=== PATIENT | female | born 1955 | race Caucasian/White ===

== ENCOUNTER → 2017-02-11 | Outpatient (CLI) | payer OTHER ==
--- NOTE | 2017-02-11 19:17 | PCVCIMAG ---
APPROVED REPORT Study performed: 02/11/2017 08:13:30 EXAM: Limited 2D Echocardiogram Patient Location: Echo lab Status: routine BSA: 1.84 HR: 61 bpmBP: 136/70 mmHg Rhythm: NSR Other Information Study Quality: Good Risk Factors: Cardiac Risk Factors: Hyperlipidemia Indications Cardiomyopathy Hypertension/HDD 2D Dimensions LVEF(%): 35.00 (>50%) IVSd: 10.97 (7-11mm) LVDd: 59.31 mm PWd: 10.21 (7-11mm) LVDs: 46.47 (25-40mm) LV Single Plane 4CH: 41.77 % LV Single Plane 2CH: 35.00 %Carr's LVEF: 38.38 % Biplane EF: 50.9 % Left Ventricle Left ventricle is borderline dilated. There is normal LV segmental wall motion. Borderline concentric left ventricular hypertrophy. Left ventricular systolic function is mildly decreased. LVEF is 35%-40% Diastolic function was not evaluated. Right Ventricle The right ventricle is normal size. The right ventricular systolic function is normal. Atria The left atrium size is normal. The right atrium size is normal. Aortic Valve The aortic valve is normal in structure. There is no aortic valvular stenosis. Mitral Valve The mitral valve is normal in structure. No evidence of mitral valve stenosis. Tricuspid Valve The tricuspid valve is normal in structure. Great Vessels The aortic root is normal in size. Pericardium There is no pericardial effusion. <Conclusion> Left ventricle is borderline dilated. Borderline concentric left ventricular hypertrophy. Left ventricular systolic function is mildly decreased. LVEF is 35%-40% The left atrium size is normal. The aortic valve is normal in structure. The mitral valve is normal in structure. The aortic root is normal in size. There is no pericardial effusion. The left atrium size is normal. The aortic valve is normal in structure. The mitral valve is normal in structure. There is no pericardial effusion.
== END | disposition home or self-care (01) ==
LOC: PCVCIMAG 07:43
PROVIDERS: ATTEND Internal Medicine Cardiovascular Disease
DX: I51.7 Cardiomegaly (principal); I10 Essential (primary) hypertension; I42.9 Cardiomyopathy, unspecified; E78.00 Pure hypercholesterolemia, unspecified
CPT/HCPCS: 93308

== ENCOUNTER → 2017-05-04 | Outpatient (CLI) | payer OTHER ==
--- NOTE | 2017-05-04 14:01 | PCVCIMAG ---
APPROVED REPORT Study performed: 05/04/2017 08:40:24 EXAM: Comprehensive 2D, Doppler, and color-flow Echocardiogram Patient Location: Echo lab Status: routine BSA: 1.84 HR: 51 bpmBP: 158/80 mmHg Rhythm: Bradycardia Other Information Study Quality: Adequate Risk Factors: Cardiac Risk Factors: HTN, Hyperlipidemia Indications Cardiomyopathy Nonischemic Cardiomyopathy 2D Dimensions LVEF(%): 35.09 (>50%) IVSd: 11.28 (7-11mm) LVDd: 57.01 mm PWd: 10.29 (7-11mm) LVDs: 47.31 (25-40mm) Left Atrium: 43.99 (27-40mm) Aortic Root: 32.84 mm LV Single Plane 4CH: 35.33 % LV Single Plane 2CH: 45.94 %Carr's LVEF: 40.63 % Biplane EF: 41.8 % Volumes Left Atrial Volume (Systole) Single Plane 4CH: 72.06 mLSingle Plane 2CH: 71.51 mL LA ESV Index: 39.00 mL/m2 Left Ventricle The left ventricle is normal size. There is normal LV segmental wall motion. There is normal left ventricular wall thickness. Left ventricular systolic function is moderately decreased. LVEF is 35-40%. This study is not technically sufficient to allow evaluation of the LV diastolic function. Right Ventricle The right ventricle is normal size. The right ventricular systolic function is normal. Atria Left atrium is mildly dilated. The right atrium size is normal. Aortic Valve The aortic valve is normal in structure. No aortic regurgitation is present. There is no aortic valvular stenosis. Mitral Valve The mitral valve is normal in structure. Mild mitral regurgitation. No evidence of mitral valve stenosis. Tricuspid Valve The tricuspid valve is normal in structure. There is no tricuspid valve regurgitation noted. Pulmonic Valve The pulmonary valve is normal in structure. There is no pulmonic valvular regurgitation. Great Vessels The aortic root is normal in size. IVC is normal in size and collapses with >50% inspiration Pericardium There is no pericardial effusion. <Conclusion> The left ventricle is normal size. Left ventricular systolic function is moderately decreased. LVEF is 35-40%. This study is not technically sufficient to allow evaluation of the LV diastolic function. The right ventricular systolic function is normal. Left atrium is mildly dilated. The right atrium size is normal. The aortic valve is normal in structure. Mild mitral regurgitation. There is no tricuspid valve regurgitation noted. There is no pericardial effusion.
== END | disposition home or self-care (01) ==
LOC: PCVCIMAG 09:06
PROVIDERS: ATTEND Internal Medicine Cardiovascular Disease
DX: I42.9 Cardiomyopathy, unspecified (principal); I10 Essential (primary) hypertension; E78.5 Hyperlipidemia, unspecified
CPT/HCPCS: 93308

== ENCOUNTER → 2018-05-19 | Outpatient (CLI) | payer OTHER ==
--- NOTE | 2018-05-19 14:44 | PCVCIMAG ---
APPROVED REPORT Study performed: 05/19/2018 08:15:02 EXAM: Comprehensive 2D, Doppler, and color-flow Echocardiogram Patient Location: Echo lab Room #: 2Status: routine BSA: 1.84 HR: 58 bpmBP: 162/90 mmHg Rhythm: BBB Other Information Study Quality: Good Indications Cardiomyopathy Hypertension/HDD 2D Dimensions IVSd: 8.32 (7-11mm)LVOT Diam: 20.90 (18-24mm) LVDd: 55.63 mm PWd: 13.69 (7-11mm)Ascending Ao: 29.27 (22-36mm) LVDs: 40.47 (25-40mm) Left Atrium: 41.93 (27-40mm) Aortic Root: 28.83 mm LV Single Plane 4CH: 36.09 % LV Single Plane 2CH: 41.45 % Biplane EF: 40.9 % Volumes Left Atrial Volume (Systole) Single Plane 4CH: 23.13 mLSingle Plane 2CH: 45.16 mL Biplane LA Volume: 33.00 mLLA ESV Index: 18.00 mL/m2 Aortic Valve AoV Peak Mg.: 1.78 m/s AO Peak Gr.: 12.74 mmHgLVOT Max P.25 mmHg LVOT Max V: 0.90 m/s [id number] Vmax: 1.73 cm2 Mitral Valve E/A Ratio: 0.5 MV Decel. Time: 189.49 ms MV E Max Mg.: 0.49 m/s MV A Mg.: 0.93 m/s IVRT: 169.55 ms TDI E/Lateral E': 9.80E/Medial E': 16.33 Medial E' Mg.: 0.03 m/s Lateral E' Mg.: 0.05 m/s Pulmonary Valve PV Peak Mg.: 1.08 m/sPV Peak Gr.: 4.64 mmHg Pulmonary Vein P Vein S: 0.38 m/sP Vein A: 0.27 m/s P Vein D: 0.32 m/sP Vein A Dur.: 76.1 msec P Vein S/D Ratio: 1.19 Tricuspid Valve TV Vmax: 0.68 m/s Left Ventricle The left ventricle is normal size. There is global hypokinesis of the left ventricle. Abnormal septal motion consistent with a BBB There is normal left ventricular wall thickness. The left ventricular ejection fraction is decreased LVEF is 35-40%. Grade I - abnormal relaxation pattern. Right Ventricle The right ventricle is normal size. The right ventricular systolic function is normal. Atria The left atrium size is normal. The right atrium size is normal. Aortic Valve Aortic valve is trileaflet. No aortic regurgitation is present. There is no aortic valvular stenosis. Mitral Valve The mitral valve is normal in structure. There is no mitral valve regurgitation noted. No evidence of mitral valve stenosis. Tricuspid Valve The tricuspid valve is normal in structure. There is no tricuspid valve regurgitation noted. Pulmonic Valve The pulmonary valve is normal in structure. There is no pulmonic valvular regurgitation. Great Vessels The aortic root is normal in size. The ascending aorta is normal in size. Aortic arch is normal in caliber. IVC is normal in size and collapses >50% with inspiration. Pericardium There is no pericardial effusion. There is no pleural effusion. <Conclusion> The left ventricle is normal size. There is global hypokinesis of the left ventricle. Abnormal septal motion consistent with a BBB LVEF is 35-40%. Grade I - abnormal relaxation pattern. The left atrium size is normal. Aortic valve is trileaflet. There is no mitral valve regurgitation noted. There is no tricuspid valve regurgitation noted. The aortic root is normal in size. There is no pericardial effusion.
== END | disposition home or self-care (01) ==
LOC: PCVCIMAG 08:23
PROVIDERS: ATTEND Internal Medicine Cardiovascular Disease
DX: I10 Essential (primary) hypertension (principal); I51.7 Cardiomegaly; I42.9 Cardiomyopathy, unspecified; E78.00 Pure hypercholesterolemia, unspecified; I45.4 Nonspecific intraventricular block
CPT/HCPCS: 93306